=== PATIENT | male | born 2005 | race African-American/Black ===

== ENCOUNTER 2025-03-22 14:13 | Emergency (ER) | payer SELFPAY ==
--- NOTE | ~2025-03-22 | XR_ITS ---
EXAMINATION: XR FOOT, LEFT CLINICAL INFORMATION: lateral tenderness doral foot COMPARISON: None available. TECHNIQUE: AP, lateral, and oblique views of the left foot. FINDINGS: The bones and soft tissues are normal. No fracture. Alignment is anatomic. Joint spaces are maintained. XR/XR foot LT min 3V IMPRESSION: Unremarkable left foot Electronically signed by: Cristian Ochoa MD 03/22/2025 02:53 PM EDT
--- NOTE | ~2025-03-22 | XR_ITS ---
EXAMINATION: XR ANKLE, left CLINICAL INFORMATION: inverted, tenderness to lateral malleolus COMPARISON: None available. TECHNIQUE: AP, lateral, and mortise views lower extremity joint, ankle. FINDINGS: There is mild lateral soft tissue swelling. There is a bony fragment visible in the subfibular region lateral to the talus only visible on the AP view. Ankle mortise is congruent. There is no widening of the syndesmosis. Talar dome is intact. There are no calcaneal enthesophytes. XR/XR ankle LT min 3V IMPRESSION: Possible avulsion fracture involving lateral talus. Electronically signed by: Cristian Ochoa MD 03/22/2025 02:55 PM EDT
[2025-03-22 14:20] VITALS: BP 127/60; PULSE 80; RESP 18; TEMP 36.1; O2SAT 98; BMI 19.6
--- NOTE | 2025-03-22 14:21 | ED_ITS ---
HPI - General Adult General Chief complaint: Extremity Injury, Lower Stated complaint: l ankle inj at work Time Seen by Provider: 03/22/25 15:40 Source: patient Mode of arrival: ambulatory Limitations: no limitations History of Present Illness ED Provider: Riky Lambert [facility] narrative: 19 yold male presents to the ED for left ankle pain after walking down one stair and heard left ankle twisted and heard a crack. patient states pain on ambulation ever since. Patient denies any chest pain, leg swelling, calf pain, head trauma, or any other complaints. Related Data Previous Rx's ?Medication ?Instructions ?Recorded naproxen 500 mg tablet 500 mg PO BID PRN pain #14 t abs 03/22/25 Allergies Allergy/AdvReac Type Severity Reaction Status Date / Time No Known Allergies Allergy Verified 03/22/25 14:22 Review of Systems 2 Review of Systems: left ankle pain Yes all other systems are reviewed and are negative [facility] Social History Social History Advance Directives: No Advance Directives Information Provided: Yes Do you have a plan to hurt others: No Plan Physical Exam ED Vital Signs: Vital Signs - 24 hr 03/22/25 14:20 03/22/25 17:00 Temperature 97.0 F 97.0 F Pulse Rate 80 80 Respiratory Rate 18 18 Blood Pressure 127/60 127/60 Pulse Oximetry 98 98 Oxygen Delivery Method Room Air Room Air BMI result Body Mass Index 19.6 Const General: cooperative, healthy appearing, comfortable, no acute distress, well developed, alert, awake and Physically active Orientation/consciousness: patient oriented x3 HENMT Head: Yes normal to inspection, Yes No palpable skull fracture present, Yes normocephalic and Yes atraumatic Eyes General: appearance normal, both eyes and all related structures Neck Neck: Yes normal visual inspection, Yes full ROM, Yes no lymphadenopathy, Yes no meningeal signs, Yes trachea midline, Yes supple, No anterior neck swelling and No tender Chest Chest palpation & inspection: normal inspection of the chest and normal palpation of entire chest wall Resp Effort & Inspection: normal respiratory effort and able to speak in complete sentences Auscultation: clear to auscultation bilaterally Cardio Jugular venous distension: no JVD Heart sounds: S1 normal heart sound present and S2 normal heart sound present GI Inspection: Yes normal to inspection Palpation (GI): Soft to palpation, not firm, nontender, no guarding and not rigid General: Yes no CVA tenderness Back/Spine/Pelvis Back: no CVA tenderness and No back tenderness Skin General skin exam: no rashes or lesions noted, elasticity normal and turgor normal Neuro General: patient oriented x3, gait normal, tone normal, moves all extremities, Normal light touch and pain sensation, no meningeal signs, no focal motor deficits, CN's II-XI intact bilaterally and normal sensation to monofilament Extrem General: Yes normal to inspection, Yes full ROM and Yes capillary refill normal Ankle/foot/toe images: 2 1. Positive for tenderness on palpation. Negative for crepitus, ecchymosis, deformity, swelling, or erythema. Rest of extremity normal. Vascular motor neuro exam intact Psych Appearance: grossly normal, well kempt and not disheveled Course Course Course Narrative: This is a rapid medical exam performed by Benjamin Adames NP: Additional HPI, ROS, PE not included below will be deferred to primary provider. Patient is a 19-year-old male presenting to the ED with complaint of left ankle pain. States he was at work and accidentally stepped off the edge of a concrete step, inverting his ankle and heard a crack. Pain and swelling to lateral malleolus. Plan: xray Medications Administered Discontinued Medications Generic Name Dose Route Start Last Admin Trade Name Freq PRN Reason Stop Dose Admin Ketorolac Tromethamine 30 mg 03/22/25 15:52 03/22/25 16:08 Ketorolac Tromethamine 30 Mg/Ml Vial IM 03/22/25 15:53 Not Given ONCE ONE Medical Decision Making Medical Decision Making [facility] Narrative: 19-year-old male presents to ED for left ankle pain. Patient has her crack yesterday while walking down the stairs. X-ray shows avulsion fracture of talus near ankle. Negative for signs of compartment syndrome, DVT, cellulitis, osteomyelitis, arterial occlusion, or any other life-threatening etiology. Patient is placed in walking boot and crutches. Patient explained worrisome signs and informed to return to the ED immediately Differential Diagnosis Differential Diagnoses: The differential diagnosis associated with the presentation includes (Fracture, dislocation, sprain) Admission/Observation Consideration of admission/observation: Escalation of care including admission/observation considered Independent Interpretation I performed an independent interpretation of an: Plain X-Ray Radiology Impression Discussion of test interpretation with radiology: I have reviewed the radiologist's reading. Independent Historian Clinical information obtained from an independent historian. History obtained from or confirmed by: Other (Patient is) Prescription Management I considered prescription management with: Pain Medication Discharge Plan Discharge Clinical Impression: Ankle fracture, Avulsion fracture Patient Disposition: Home, Self-Care Instructions: Ankle Fracture (ED), Closed Reduction Internal Fixation of Leg Fracture in Adults (DC) Additional Instructions: X-ray shows a fracture. You will need to follow up with primary care provider orthopedic surgeon. Return to the ED immediately for any worsening pain, increased swelling, bluish black discoloration, numbness/tingling, redness, or any other concerning symptoms. Ordering Physician: Rafia Adames NP Date of Service: 03/22/25 Procedure(s): XR foot LT min 3V Accession Number(s): [id number] cc: Physician,Unknown ; Rafia Adames NP~ EXAMINATION: XR FOOT, LEFT CLINICAL INFORMATION: lateral tenderness doral foot COMPARISON: None available. TECHNIQUE: AP, lateral, and oblique views of the left foot. FINDINGS: The bones and soft tissues are normal. No fracture. Alignment is anatomic. Joint spaces are maintained. XR/XR foot LT min 3V IMPRESSION: Unremarkable left foot Electronically signed by: Cristian Ochoa MD 03/22/2025 02:53 PM EDT RP EXAMINATION: XR ANKLE, left CLINICAL INFORMATION: inverted, tenderness to lateral malleolus COMPARISON: None available. TECHNIQUE: AP, lateral, and mortise views lower extremity joint, ankle. FINDINGS: There is mild lateral soft tissue swelling. There is a bony fragment visible in the subfibular region lateral to the talus only visible on the AP view. Ankle mortise is congruent. There is no widening of the syndesmosis. Talar dome is intact. There are no calcaneal enthesophytes. XR/XR ankle LT min 3V IMPRESSION: Possible avulsion fracture involving lateral talus. Electronically signed by: Cristian Ochoa MD 03/22/2025 02:55 PM EDT RP Prescriptions: New naproxen 500 mg tablet 500 mg PO BID PRN (Reason: pain) Qty: 14 0RF Referrals: [facility] [Provider Group, Orthopedics] - 3 days Referral Note: Ankle fracture Clinical Impression: Ankle fracture Stand Alone Forms: Work/School Release Interventions: ED Discharge Assessment Last Done: 03/22/25 17:00 Discharge Date/Time: 03/22/25 17:03 Print Language: Surinamese
[2025-03-22 17:00] VITALS: BP 127/60; PULSE 80; RESP 18; TEMP 36.1; O2SAT 98
== END 2025-03-22 17:03 | disposition home or self-care (01) ==
PROVIDERS: Emergency Provider Emergency Medicine
DX: S92.152A Displaced avulsion fracture (chip fracture) of left talus, initial encounter for closed fracture (principal); X50.1XXA Overexertion from prolonged static or awkward postures, initial encounter; Y93.89 Activity, other specified; Y92.69 Other specified industrial and construction area as the place of occurrence of the external cause; Y99.8 Other external cause status
CPT/HCPCS: 73610; 73630; 99282; 99283

== ENCOUNTER → 2025-03-22 14:23 | Outpatient (BNV) | payer SELFPAY | PROVIDERS: Visit Provider Radiology Diagnostic Radiology | DX: M25.572 Pain in left ankle and joints of left foot (principal); M79.672 Pain in left foot | CPT/HCPCS: 73610; 73630 ==